=== PATIENT | female | born 1945 | race Two or more races ===

== ENCOUNTER 2025-02-06 11:02 | Outpatient (CLI) | payer MEDICARE, MEDICAID ==
[~2025-02-06 11:02] MED LIST: MECL25TA3 PO; ONDA4TAB6 PO
--- NOTE | 2025-02-06 12:51 | VASCULAR REPORT ---
Bilateral lower extremity venous duplex Clinical History: Bilateral calf discoloration Comparison: None Technique: Duplex Doppler evaluation of the deep venous systems of both lower extremities from the common femora l veins to the popliteal veins including color Doppler and spectral/pulsed waveform analysis was perf ormed. Findings: RIGHT SIDE: The common femoral vein demonstrates appropriate compressibility and waveform variability. There is compressibility/patency of the great saphenous vein at the proximal thigh. The femoral vein demonstrates appropriate compressibility and waveform variability. The deep femoral vein demonstrates appropriate compressibility and waveform variability. The popliteal vein demonstrates appropriate compressibility and waveform variability. There is normal compressibility at the tibioperoneal trunk. LEFT SIDE: The common femoral vein demonstrates appropriate compressibility and waveform variability. There is compressibility/patency of the great saphenous vein at the proximal thigh. The femoral vein demonstrates appropriate compressibility and waveform variability. The deep femoral vein demonstrates appropriate compressibility and waveform variability. The popliteal vein demonstrates appropriate compressibility and waveform variability. There is normal compressibility at the tibioperoneal trunk. Impression: No right or left femoropopliteal venous thrombosis. Popliteal fossa cyst is present on the left measuring 5.2 cm. Incidental note of superficial venous reflux in bilateral greater saphenous veins and right lesser sa phenous vein.
== END 2025-02-06 23:59 | disposition home or self-care (01) ==
LOC: RAD 11:02
PROVIDERS: ATTEND Student in an Organized Health Care Education/Training Program
DX: I87.2 Venous insufficiency (chronic) (peripheral) (principal); M71.22 Synovial cyst of popliteal space [Baker], left knee
CPT/HCPCS: 93970